=== PATIENT | male | born 1995 | race Caucasian/White ===

== ENCOUNTER 2022-12-05 11:13 | Emergency (ER) | payer SELFPAY ==
[2022-12-05 11:21] VITALS: BP 144/71; PULSE 77; RESP 18; TEMP 37.1; O2SAT 100
--- NOTE | 2022-12-05 11:26 | ED.URI ---
HPI - URI/Sore Throat General Chief Complaint: Unspecified Stated Complaint: Left Side Neck Swollen Time Seen by Provider: 12/05/22 11:26 Source: patient Mode of arrival: ambulatory Limitations: no limitations History of Present Illness HPI Narrative: 27-year-old male presents with complaint left neck swelling since last night. States that he noticed this after getting off work. 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 Feels that he may have strained it. Tender on palpation and with active range of motion. No other symptoms today. All systems reviewed and negative except as noted above. Related Data Allergies Allergy/AdvReac Type Severity Reaction Status Date / Time No Known Allergies Allergy Verified 12/05/22 11:23 Review of Systems Review of Systems: CONSTITUTIONAL: Denies fever, chills, or sweats. EYES: Denies visual changes, redness, or discharge. ENT: Denies rhinorrhea, congestion, sore throat, or otalgia. CARDIOVASCULAR: Denies chest pain, palpitations, or edema. RESPIRATORY: Denies cough or dyspnea. GASTROINTESTINAL: Denies abdominal pain, nausea, vomiting, or diarrhea. GENITOURINARY: Denies dysuria or hematuria. SKIN: Denies rash or itching. MUSCULOSKELETAL: Denies back pain, joint pain, or myalgia. Reports left-sided neck pain. NEUROLOGIC: Denies headache, numbness, or weakness. PSYCHIATRIC: Denies anxiety or depression. All other systems reviewed are negative, except as documented in HPI. PMFSH Comments At time of signature, agree with nursing past medical, surgical, social and family history. There is no relevant family history pertinent to the presenting complaint. Exam Narrative: GENERAL: This is a well-nourished, well-developed patient, in no apparent distress. HEAD: normocephalic, atraumatic. EYES: PERRL. Sclera clear/white. Vision is grossly intact. EARS: External ears normal, auditory canals clear and without drainage, TMs normal without perforation. Hearing grossly intact. NOSE: External nose normal THROAT: Mucous membranes moist, posterior pharynx clear. NECK: L sided neck tenderness with mild swelling of trapezius muscle. full ROM. without lymphadenopathy, masses or thyromegaly. CARDIOVASCULAR: Regular rate and rhythm without murmurs, gallops, or rubs. RESPIRATORY: Clear to auscultation. Breath sounds equal bilaterally. No wheezes, rales, or rhonchi. SKIN: warm, Dry, intact with no suspicious lesions or rash, good texture and turgor. NEURO: awake, alert, and oriented to person, place and time. There were no obvious focal neurologic abnormalities. EXTREMITIES: No joint tenderness, effusion, or edema noted. Course Course Level of Care: Express Care Visit Vital Signs Vital signs: Vital Signs Temperature 37.1 C 12/05/22 11:21 Pulse Rate 77 12/05/22 11:21 Respiratory Rate 18 12/05/22 11:21 Blood Pressure 144/71 H 12/05/22 11:21 Pulse Oximetry 100 12/05/22 11:21 Oxygen Delivery Room Air 12/05/22 11:21 Temperature 37.1 C 12/05/22 11:21 Pulse Rate 77 12/05/22 11:21 Respiratory Rate 18 12/05/22 11:21 Blood Pressure 144/71 H 12/05/22 11:21 Pulse Oximetry 100 12/05/22 11:21 Oxygen Delivery Room Air 12/05/22 11:21 Reviewed MDM - URI/Sore Throat MDM Narrative Medical decision making narrative: Will treat patient for trapezius muscle strain. he does not like to take medications and states that he may wait a few days to see if it gets better on his own before starting medications. recommend patient follow-up with his primary care physician if symptoms not improving Patient is aware of diagnosis, understands and agrees to treatment plan. Anticipatory guidance given. Patient agrees to follow-up as directed and is aware of reasons to seek care at the emergency department. Portions of this record may have been created with voice recognition software Discharge Plan Dischar
== END 2022-12-05 11:56 | disposition home or self-care (01) ==
PROVIDERS: Emergency Provider Nurse Practitioner Family
DX: S16.1XXA Strain of muscle, fascia and tendon at neck level, initial encounter (principal); X50.3XXA Overexertion from repetitive movements, initial encounter; Y99.0 Civilian activity done for income or pay
CPT/HCPCS: 99213; G0463

== ENCOUNTER 2022-12-07 21:28 | Emergency (ER) | payer SELFPAY ==
--- NOTE | ~2022-12-07 | CT_ITS ---
EXAMINATION: CT soft tissue neck w con DATE: 12/07/2022 23:27 INDICATION: Sore throat and lateral left neck mass/swelling. TECHNIQUE: Computed tomography (CT) of the neck was performed with 75 mL Omnipaque-350 intravenous co ntrast. Automated exposure control and iterative reconstruction technique were employed. The dose-holland gth product was 569.47 mGy-cm. COMPARISON: None FINDINGS: There is asymmetric swelling of the left palatine tonsil with central 12 x 9 x 7 mm hypodense tonsill ar abscess. There appears to be some mild edematous swelling of the uvula. Tiny dystrophic calcificat ion at the left lingual tonsil which appears otherwise relatively symmetric with the normal right rickie gual tonsil. The right palatine tonsil is normal. Small amount of fluid in the vallecula anterior to the normal epiglottis. Bilateral parotid, submandibular glands and the thyroid are normal. Mild asymm etric enlargement of the cervical lymph nodes the left posterior cervical triangle and superior left jugular chain. The largest lymph nodes along the posterior margin of the left angle of the mandible m easure 1.6 cm maximal diameter. The visualized vasculature of the head and neck are patent and normal in caliber. Normal appearance of residual thymic tissue in the anterior superior mediastinum. Visual ized portion of the heart, aorta and pulmonary arteries in the upper lung zones are normal. Visualize d portions of the upper lungs are clear. Bones are unremarkable. IMPRESSION: 1. 12 x 9 x 7 mm abscess within the left palatine tonsil. 2. Asymmetric mild likely reactive left cervical lymphadenopathy. Reviewed, dictated and finalized at location A. UITMENT ASSISTANT
[2022-12-07 21:29] VITALS: BP 158/78; PULSE 93; RESP 18; TEMP 36.6; O2SAT 98
--- NOTE | 2022-12-07 22:20 | ED.GENADULT ---
HPI - General Adult General Chief complaint: Unspecified Stated complaint: Sore throat Time Seen by Provider: 12/07/22 21:38 History of Present Illness HPI narrative: Patient is a 27-year-old male here for evaluation of left-sided facial swelling over the past 4 days. Patient was seen in urgent care facility upon symptom onset and was diagnosed with lymphadenopathy, was given steroids and anti-inflammatories which he did not take. Patient states that yesterday he started noticed some swelling in the back of his throat and throat pain which prompted his ED evaluation today. He is tolerating his secretions, denies vocal changes, hoarseness, fevers, night sweats, chills changes in weight. No sick contacts. Related Data Allergies Allergy/AdvReac Type Severity Reaction Status Date / Time No Known Allergies Allergy Verified 12/07/22 21:32 Exam Narrative: APPEARANCE: Well appearing, no pain in distress, well-nourished. Head: Normocephalic and atraumatic. EYES: PERRLA/EOMI, conjunctivae clear NOSE: No nasal drainage EARS: External ear normal in appearance THROAT: He has 2+ bilateral tonsillar swelling but no exudates, uvular deviation, muffled voice, visible RTA or MEDICAL LAB SPECIALIST. NECK: Patient has a nontender mass to the left submandibular region that is nontender to palpation with no overlying warmth or erythema. Full range of motion in the neck. RESPIRATORY: Airway patent, respirations nonlabored. Clear to auscultation bilaterally, no rales, rhonchi, wheezing. CARDIOVASCULAR: Regular rate and rhythm without murmurs, rubs, or gallops. ABDOMINAL: Normoactive bowel sounds. Soft, nontender, nondistended. No rebound tenderness or guarding. MUSCULOSKELETAL: Extremities are warm and well-perfused. Moves all extremities well. No edema. NEURO: Normal speech. No focal neurologic deficits. SKIN: Skin is warm and dry. No rashes. PSYCHIATRIC: Normal affect/mood. Course Vital Signs Vital signs: Vital Signs Temperature 97.8 F 12/07/22 21:29 Pulse Rate 93 12/07/22 21:29 Respiratory Rate 18 12/07/22 21:29 Blood Pressure 158/78 H 12/07/22 21:29 Pulse Oximetry 98 12/07/22 21:29 Oxygen Delivery Room Air 12/07/22 21:29 Temperature 97.8 F 12/07/22 21:29 Pulse Rate 93 12/07/22 21:29 Respiratory Rate 18 12/07/22 21:29 Blood Pressure 158/78 H 12/07/22 21:29 Pulse Oximetry 98 12/07/22 21:29 Oxygen Delivery Room Air 12/07/22 21:29 Medical Decision Making MDM Narrative Medical decision making narrative: 27-year-old male here for evaluation of a painless mass to his left submandibular region, first developed 3 days ago, now progressing to a sore throat. He is nontoxic-appearing, no signs of airway compromise or abnormal vital signs. He has a white count of 14.1. Strep is negative. CT soft tissue neck shows a abscess in the palatine tonsil. Spoke with Dr. Elizondo, ENT, given that patient is nontoxic and is tolerating his secretions, okay to go home with oral antibiotics and outpatient follow-up. We discussed return precautions and he voiced understanding, patient was given steroids and first dose of antibiotics in the ED with improvement. Vital Signs Vital Signs: Vital Signs Temperature 97.8 F 12/07/22 21:29 Pulse Rate 93 12/07/22 21:29 Respiratory Rate 18 12/07/22 21:29 Blood Pressure 158/78 H 12/07/22 21:29 Pulse Oximetry 98 12/07/22 21:29 Oxygen Delivery Room Air 12/07/22 21:29 Temperature 97.8 F 12/07/22 21:29 Pulse Rate 93 12/07/22 21:29 Respiratory Rate 18 12/07/22 21:29 Blood Pressure 158/78 H 12/07/22 21:29 Pulse Oximetry 98 12/07/22 21:29 Oxygen Delivery Room Air 12/07/22 21:29 Lab Data 12/07/22 22:19 12/07/22 22:19 Labs: Lab Results 12/07/22 12/07/22 12/07/22 Range/Units 22:19 22:19 23:13 WBC 14.1 H (4.5-10.0) K/mm3 RBC 4.90 (4.6-6.20) M/mm3 Hgb 14.3 (14.0-18.0) g/dL Hct 42.0 (42.0-52.0) % MCV 85
[2022-12-07 22:34] LABS: Basophils Absolute Auto 0.1 K/mm3 (0.0-0.1); Basophils Percent Auto 0.9 % (0.2-1.2); Eosinophils Absolute Auto 0.2 K/mm3 (0-0.3); Eosinophils Percent Auto 1.6 % (0-4.4); Hemoglobin 14.3 g/dL (14.0-18.0); Immature Granulocyte Absolute 0.06 K/mm3 (0.00-0.031); Immature Granulocyte Percent A 0.4 % (0-0.5); Lymphocytes Absolute Auto 7.84 K/mm3 (0.9-3.2); Lymphocytes Percent Auto 55.8 % (18.3-44.2); Mean Corpuscular Hemoglobin 29.2 pg (26-34); Mean Corpuscular Volume 85.7 fl (80-100); Mean Platelet Volume 9.9 fl (7.4-10.4); Monocytes Absolute Auto 1.3 K/mm3 (0.1-0.6); Monocytes Percent Auto 8.9 % (2.6-8.5); Neutrophils Absolute Auto 4.6 K/mm3 (1.3-6.7); Neutrophils Percent Auto 32.4 % (45.5-73.1); Platelet Count Result 176 k/mm3 (150-375); Red Cell Distribution Width 12.8 % (11.5-14.5); White Blood Count 14.1 K/mm3 (4.5-10.0)
[2022-12-07 22:58] LABS: Anion Gap 6 mmol/L (8-16); Blood Urea Nitrogen 14 mg/dL (9-20); Calcium 8.4 mg/dL (8.4-10.2); Carbon Dioxide 29 mmol/L (22-30); Chloride 103 mmol/L (98-107); Estimated CRCL calculation 121 ml/min; Estimated Glomerular Filt Rate > 60; Glucose 97 mg/dL (65-110); Potassium 3.9 mmol/L (3.4-5.0); Sodium 138 mmol/L (137-145)
[2022-12-07 23:12] LABS: Atypical Lymphocytes Present; Platelet Estimate Adequate (Adequate)
[2022-12-07 23:58] LABS: Strep Group A RT-PCR NOT DETECTED (Negative)
[2022-12-08] MEDS: AMPICILLIN SULB 1.5 GM/NS 50ML 1.5 GM/50 ML VIAL IVPB (00:11)
== END 2022-12-08 00:45 | disposition home or self-care (01) ==
PROVIDERS: Emergency Provider Physician Assistant
DX: J36 Peritonsillar abscess (principal)
CPT/HCPCS: 36415; 70491; 80048; 85025; 87651; 96365; 96374; 99284; J0295; J1100; Q9967